=== PATIENT | male | born 1965 | race African-American/Black ===

== ENCOUNTER → 2016-08-03 | Outpatient (CLI) | payer OTHER ==
[2015-01-14 16:15] VITALS: BP 168/75
[~2016-08-03] MED LIST: ASPI-612 PO; ASPI81TA44 PO; FURO40TA4 PO; HYDR100T24 PO; LISI-334 PO; LISI40TA PO; METO25TA4 PO; PANT40TA5 PO; POTA20TA12 PO; PROP40TA PO; PROP80CA3 PO; SIMV20TA3 PO; SIMV40TA3 PO; VERA240C2 PO
--- NOTE | 2016-08-03 11:57 | FMS ---
Indication back pain. AP and lateral views of the lumbar spine were obtained. The study is limited secondary to patient body habitus. Vertebral height is well maintained. There is no significant disc space narrowing seen at any level. There is mild anterior spondylolisthesis of L4 relative to L5. There are likely some facet degenerative changes at L4-5 and L5-S1. An acute bony finding is not seen. IMPRESSION: Limited study. Spondylitic changes. No definite acute finding seen
== END ==
LOC: FMSRAD 11:34
PROVIDERS: ATTEND Physician Assistant Surgical

== ENCOUNTER → 2017-08-28 | Outpatient (CLI) | payer OTHER | END | disposition home or self-care (01) | LOC: ECHO 12:33 | DX: I70.1 Atherosclerosis of renal artery (principal); I51.7 Cardiomegaly | CPT/HCPCS: 93306; 93975 ==

== ENCOUNTER → 2017-09-16 | Outpatient (CLI) | payer OTHER ==
[~2017-09-16] MED LIST changes: -ASPI-612 PO; -ASPI81TA44 PO; +CONTRAST GIVEN. MC; -FURO40TA4 PO; -HYDR100T24 PO; -LISI-334 PO; -LISI40TA PO; -METO25TA4 PO; -PANT40TA5 PO; -POTA20TA12 PO; -PROP40TA PO; -PROP80CA3 PO; -SIMV20TA3 PO; -SIMV40TA3 PO; -VERA240C2 PO
[2017-09-16] MEDS: IOHEXOL 300 MG/ML 100ML VIAL. IV (08:30)
== END | disposition home or self-care (01) ==
LOC: CT 11:50
DX: I77.810 Thoracic aortic ectasia (principal); I25.10 Atherosclerotic heart disease of native coronary artery without angina pectoris; E78.5 Hyperlipidemia, unspecified; E78.00 Pure hypercholesterolemia, unspecified
CPT/HCPCS: 71275; Q9967

== ENCOUNTER → 2021-06-22 | Outpatient (CLI) | payer MEDICARE ==
[2015-01-14 16:15] VITALS: BP 168/75
[~2021-06-22] MED LIST changes: +ASPI-886 PO; +ASPI81TA59 PO; -CONTRAST GIVEN. MC; +FURO40TA4 PO; +HYDR100T24 PO; +LISI-130 PO; +LISI20TA18 PO; +METO25TA4 PO; +PANT40TA77 PO; +POTA20TA12 PO; +PROP40TA PO; +PROP80CA3 PO; +SIMV20TA18 PO; +SIMV40TA18 PO; +VERA240C2 PO
--- NOTE | 2021-06-22 16:56 | RAD ---
Exam: US DPLX ARTR EXTREM LOWER BILAT History: Nonpalpable pulses and lower extremities. Pain in the feet. Low Comparison: None. Technique: Grayscale, color, and spectral Doppler ultrasound images of the bilateral lower extremity arteries. Findings: Visualization of small vessels is limited due to body habitus. The right common femoral artery demonstrates normal triphasic waveforms with peak systolic velocity o f 93 cm/s. There is continued patency of the right deep and superficial femoral artery is extending i nto the popliteal artery, proximal peroneal artery, proximal posterior tibial artery to the distal pe roneal and posterior tibial arteries. The dorsalis pedis artery is patent. The left anterior tibial a rtery is not visualized. There is dampening of waveforms in the distal right lower extremity. No visu al evidence of stenosis or increased Doppler flow rates to suggest significant stenosis. The left common femoral artery is patent with triphasic waveforms and peak systolic velocity of 91 cm /s. Continued patency in the deep and superficial femoral arteries extending through the popliteal ar cary, proximal posterior tibial, peroneal arteries and into the anterior tibial artery at the ankle a nd dorsalis pedis artery at the foot. Dampened waveforms are present in the distal lower extremity an d left foot and ankle. No visual evidence of stenosis or elevated peak systolic velocities to suggest significant stenosis. Impression: 1. Localization of the right anterior tibial artery may be due to occlusion or limited visibility fr om body habitus. 2. Otherwise patent lower extremity arteries without evidence of the stenosis. 3. Dampened distal lower extremity arteries waveforms suggest peripheral vascular disease. Electronically signed by: Herb Felix MD (06/22/2021 4:53 PM) [id number]
== END ==
LOC: US 13:03
PROVIDERS: ATTEND Podiatrist
DX: R09.89 Other specified symptoms and signs involving the circulatory and respiratory systems (principal)
CPT/HCPCS: 93925